=== PATIENT | female | born 1935 | race Caucasian/White ===

== ENCOUNTER 2016-08-02 17:35 | Observation (INO) | payer OTHER ==
[~2016-08-02] VITALS: Ht 172.7 cm; Wt 65.9 kg
--- NOTE | ~2016-08-02 | EKG ---
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
--- NOTE | ~2016-08-02 | H ---
[facility] [place] [address] HISTORY AND PHYSICAL Name: CECY HURD Room #: 404-P [facility] Quevedo#: [id number] Admission: 08/02/16 Attend Phys: Osvaldo Soto MD Discharge: 08/03/16 Date of : 35 Report #: [id number] THIS REPORT FOR: //name// CC: Osvaldo Soto DATE OF SERVICE: 08/03/2016 CHIEF COMPLAINT: Back pain. HISTORY OF PRESENT ILLNESS: The patient is an 81-year-old female, who resides at [facility]. She is wheelchair bound, but unfortunately attempts to transfer without assist. She reportedly fell while attempting to transfer. She complaint of back pain. She was brought to [facility], Emergency Room for evaluation where she was found to have an acute L4 compression fracture. She was subsequently admitted for pain management. 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 ALLERGIES: No known drug allergies. MEDICATIONS: Cephalexin 250 mg daily, Namenda XR 28 mg daily, ranitidine 150 mg daily, Celexa 10 mg daily. FAMILY HISTORY: Noncontributory. SOCIAL HISTORY: The patient is . She is retired and lives in a [facility]. She does not use tobacco or alcohol. REVIEW OF SYSTEMS: Negative other than as per history of present illness. PHYSICAL EXAMINATION: GENERAL: The patient is a pleasant, cooperative, elderly female lying in bed in no apparent distress. VITAL SIGNS: Revealed temperature 36.7, pulse of 55, respiration rate 16, blood pressure 148/84. HEENT: Head is normocephalic, atraumatic. Pupils are equal and reactive. Extraocular muscles are intact. Oropharynx is moist. NECK: Supple. Trachea midline. LUNGS: Clear to auscultation. CARDIOVASCULAR: Regular rate and rhythm. ABDOMEN: Soft, nontender, nondistended with normoactive bowel sounds. SKIN: Warm and dry. Turgor adequate. LYMPHATICS: No cervical or axillary lymphadenopathy. [facility] [address] [place] [address] HISTORY AND PHYSICAL Name: CECY HURD Room #: 404-P [facility] M.R.#: [id number] Admission: 08/02/16 Attend Phys: Osvaldo Soto MD Discharge: 08/03/16 Date of : 35 Report #: [id number] NEUROLOGIC: She is awake, alert, oriented to self. She moves all extremities independent to command without focal neurologic deficit or lateralizing sign. MUSCULOSKELETAL: Reveals equal and symmetric strength throughout. She is able to role in bed and sit up and laid down without significant discomfort. RADIOLOGIC STUDIES: Include CT of pelvis that was unremarkable. CT of head shows atrophic changes, otherwise no acute process. CT of the spine reveals minor pulmonary atelectasis. Dilated thoracic aorta measuring 3.4 cm, degenerative changes noted in thoracic spine. There is noted acute L4 compression fracture. There is severe narrowing of L5-S1 disk space. There is mild to moderate L2 wedging with overall chronic appearance and L1 chronic compression with status post vertebroplasty. There is also noted inferior vena cava filter placement in place. ASSESSMENT: 1. Acute L4 compression fracture. Currently, pain controlled adequate with Lidoderm patch and [place]. 2. Deep vein thrombosis status post IVC filter. 3. Gastroesophageal reflux disease without esophagitis. 4. Osteoporosis with multiple fractures. 5. 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 PLAN: At this time, her pain appears well managed with combination of Lidoderm patches and [place]. She is deemed optimal and stable for discharge. . DISCHARGE INSTRUCTIONS: The [facility] was given following instructions: Her diet will be a regular diet. Activities as tolerated. DISCHARGE MEDICATIONS: She will resume all her previous medications. In addition, she will receive [place] 5/325 one tablet twice a day and every 4 hours as needed. In addition, she will also receive Amitiza 24 mcg p.o. b.i.d. FOLLOWUP PLANS. The patient was seen in [facility] for routine followup. <ELECTRONICALLY SIGNED> By: Osvaldo Soto MD 09/04/16 1931 1250 1351 Osvaldo Soto MD /nt
[2016-08-02 17:36] VITALS: BP 148/84
[2016-08-02] MEDS ORDERED: CELEXA10 MG PO (19:24)
[2016-08-02] MEDS ORDERED: CEPHALEXIN250 MG PO (19:24)
[2016-08-02] MEDS ORDERED: ZANTAC 150MG T150 M1 PO (19:25)
[2016-08-02] MEDS ORDERED: NAMENDA 10 MG T10 MG PO (19:25)
[2016-08-02 21:12] VITALS: BP 158/82
[2016-08-02 22:45] VITALS: BP 162/104
[2016-08-03 04:00] VITALS: BP 99/59
[2016-08-03 08:00] VITALS: BP 98/66
[2016-08-03] MEDS ORDERED: HYDROCODON-ACE1 EAC7 PO ×2 (12:53→12:54)
[2016-08-03] MEDS ORDERED: LIDODERM 5%1 PATC1 TRANSDERM (12:54)
[2016-08-03] MEDS ORDERED: AMITIZA 24 MCG24 MC1 PO (12:55)
== END 2016-08-03 17:47 ==
LOC: ER 17:35 → EROBS 21:04 → 4N 21:04
DX: S32.040A Wedge compression fracture of fourth lumbar vertebra, initial encounter for closed fracture (principal); S01.81XA Laceration without foreign body of other part of head, initial encounter; S93.402A Sprain of unspecified ligament of left ankle, initial encounter; S09.90XA Unspecified injury of head, initial encounter; S80.02XA Contusion of left knee, initial encounter; K21.9 Gastro-esophageal reflux disease without esophagitis; M81.0 Age-related osteoporosis without current pathological fracture; F03.90 Unspecified dementia, unspecified severity, without behavioral disturbance, psychotic disturbance, mood disturbance, and anxiety; Z79.2 Long term (current) use of antibiotics; Z23 Encounter for immunization; W19.XXXA Unspecified fall, initial encounter; Z79.899 Other long term (current) drug therapy; Y93.89 Activity, other specified; Y92.89 Other specified places as the place of occurrence of the external cause; Y99.8 Other external cause status